=== PATIENT | male | born 2000 | race African-American/Black ===

== ENCOUNTER 2021-06-06 14:31 | Emergency (ER) | payer MEDICAID ==
--- NOTE | 2021-06-06 14:45 | ED Physician Documentation ---
PD HPI CHEST PAIN - Stated complaint Stated Complaint: CHEST PX - History obtained from History obtained from: Patient - Additional information Additional information: 20-year-old gentleman presents via the front door for evaluation of chest pain. He is clearly psychotic saying such thing is my heart is breaking and "where is Woo?" When asking who Woo is, he replies you know "Woo and the being stuck." He says he does not have any health issues. He admits to using marijuana but no other substances. Review of Systems Unable to obtain: Uncooperative PD PAST MEDICAL HISTORY - Allergies Allergies/Adverse Reactions: Allergies Allergy/AdvReac Type Severity Reaction Status Date / Time No Known Drug Allergies Allergy Verified 06/06/21 14:52 PD ED PE NORMAL - Vitals Vital signs reviewed: Yes - General General: No acute distress, Other (Intense stare, delusional and psychotic) - HEENT HEENT: PERRL, EOMI - Neck Neck: Supple, no meningeal sign, No bony TTP, No bruit - Cardiac Cardiac: RRR, No murmur - Respiratory Respiratory: No respiratory distress, Clear bilaterally - Abdomen Abdomen: Normal bowel sounds, Soft, Non tender - Back Back: No CVA TTP, No spinal TTP - Derm Derm: Normal color, Warm and dry - Extremities Extremities: No edema, No calf tenderness / cord - Neuro Eye Opening: Spontaneous Motor: Obeys Commands Results - Vitals Vitals: Vital Signs - 24 hr 06/06/21 06/06/21 06/06/21 18:16 18:30 20:18 Temperature Heart Rate 128 H 73 Respiratory 20 16 Rate Blood Pressure 183/104 H 170/91 H 140/92 H O2 Saturation 100 100 06/06/21 06/07/21 06/07/21 23:38 09:34 16:27 Temperature 36.5 C 36.5 C 37.0 C Heart Rate 72 64 65 Respiratory 16 16 19 Rate Blood Pressure 130/80 117/74 135/80 H O2 Saturation 100 100 100 Oxygen O2 Source Room air - EKG (time done) 1651 Rate: Rate (enter#) (78) Rhythm: NSR Burden: Normal Intervals: Normal MT QRS: Normal Ischemia: Normal ST segments - Labs Labs: Laboratory Tests 06/06/21 06/06/21 06/06/21 16:45 16:45 16:45 WBC 7.0 RBC 4.59 L Hgb 14.3 Hct 40.6 L MCV 88.5 MCH 31.2 H MCHC 35.2 RDW 12.1 Plt Count 165 MPV 10.9 Neut # (Auto) 4.3 Lymph # (Auto) 2.0 [place] # (Auto) 0.7 Eos # (Auto) 0.0 Baso # (Auto) 0.0 Absolute Nucleated RBC 0.00 Nucleated RBC % 0.0 Sodium 137 Potassium 3.3 L Chloride 99 L Carbon Dioxide 25 Anion Gap 13.0 BUN 17 Creatinine 1.0 Estimated GFR (MDRD) 114 Glucose 106 H Calcium 9.1 Magnesium Total Bilirubin 2.3 H AST 40 ALT 23 Alkaline Phosphatase 61 Total Creatine Kinase Total Protein 8.2 Albumin 5.0 Globulin 3.2 Albumin/Globulin Ratio 1.6 Lipase 34 TSH 2.99 Urine Color Urine Clarity Urine pH Ur Specific [place] Urine Protein Urine Glucose (UA) Urine Ketones Urine Occult Blood Urine Nitrite Urine Bilirubin Urine Urobilinogen Ur Leukocyte Esterase Urine RBC Urine WBC Ur Squamous Epith Cells Urine Bacteria Urine Mucus Ur Microscopic Review Urine Culture Comments Salicylates < 6.0 Urine Opiates Screen Ur Oxycodone Screen Urine Methadone Screen Ur Propoxyphene Screen Acetaminophen < 10 L Ur Barbiturates Screen Ur Tricyclics Screen Ur Phencyclidine Scrn Ur Amphetamine Screen U Methamphetamines Scrn U Benzodiazepines Scrn Urine Cocaine Screen U Cannabinoids Screen Ethyl Alcohol < 5.0 SARS-CoV-2 (PCR) 06/06/21 06/06/21 06/07/21 16:45 18:18 13:12 WBC RBC Hgb Hct MCV MCH MCHC RDW Plt Count MPV Neut # (Auto) Lymph # (Auto) [place] # (Auto) Eos # (Auto) Baso # (Auto) Absolute Nucleated RBC Nucleated RBC % Sodium Potassium Chloride Carbon Dioxide Anion Gap BUN Creatinine Estimated GFR (MDRD) Glucose Calcium Magnesium 2.3 Total Bilirubin AST ALT Alkaline Phosphatase Total Creatine Kinase 1222 H* Total Protein Albumin Globulin Albumin/Globulin Ratio Lipase TSH Urine Color BROWN Urine Clarity HAZY Urine pH 6.0 Ur Specific [place] >=1.030 H Urine Protein TRACE Urine Glucose (UA) NEGATIVE Urine Ketones 40 H Urine Occult Blood NEGATIVE Urine Nitrite NEGATIVE Urine Bilirubin NEGATIVE Urine Urobilinogen 0.2 (NORMAL) Ur Leukocyte Esterase NEGATIVE Urine RBC None Seen Urine WBC 0-3 Ur Squamous Epith Cells NONE SEEN Urine Bacteria None Seen Urine Mucus Few Strands Ur Microscopic Review INDICATED Urine Culture Comments NOT INDICATED Salicylates Urine Opiates Screen NEGATIVE Ur Oxycodone Screen NEGATIVE Urine Methadone Screen NEGATIVE Ur Propoxyphene Screen NEGATIVE Acetaminophen Ur Barbiturates Screen NEGATIVE Ur Tricyclics Screen NEGATIVE Ur Phencyclidine Scrn NEGATIVE Ur Amphetamine Screen NEGATIVE U Methamphetamines Scrn NEGATIVE U Benzodiazepines Scrn NEGATIVE Urine Cocaine Screen NEGATIVE U Cannabinoids Screen POSITIVE H Ethyl Alcohol SARS-CoV-2 (PCR) NOT DETECTED 06/07/21 13:12 WBC RBC Hgb Hct MCV MCH MCHC RDW Plt Count MPV Neut # (Auto) Lymph # (Auto) [place] # (Auto) Eos # (Auto) Baso # (Auto) Absolute Nucleated RBC Nucleated RBC % Sodium 138 Potassium 3.6 Chloride 99 L Carbon Dioxide 29 Anion Gap 10.0 BUN 14 Creatinine 1.2 Estimated GFR (MDRD) 93 Glucose 87 Calcium 9.0 Magnesium Total Bilirubin AST ALT Alkaline Phosphatase Total Creatine Kinase Total Protein Albumin Globulin Albumin/Globulin Ratio Lipase TSH Urine Color Urine Clarity Urine pH Ur Specific [place] Urine Protein Urine Glucose (UA) Urine Ketones Urine Occult Blood Urine Nitrite Urine Bilirubin Urine Urobilinogen Ur Leukocyte Esterase Urine RBC Urine WBC Ur Squamous Epith Cells Urine Bacteria Urine Mucus Ur Microscopic Review Urine Culture Comments Salicylates Urine Opiates Screen Ur Oxycodone Screen Urine Methadone Screen Ur Propoxyphene Screen Acetaminophen Ur Barbiturates Screen Ur Tricyclics Screen Ur Phencyclidine Scrn Ur Amphetamine Screen U Methamphetamines Scrn U Benzodiazepines Scrn Urine Cocaine Screen U Cannabinoids Screen Ethyl Alcohol SARS-CoV-2 (PCR) PD MEDICAL DECISION MAKING - ED course ED course: This is a young man who presents by the front door with chest complaints but is clearly psychotic. He is resistant to care and nursing could not even undress him. After several hours of trying to verbally de-escalate and work with him, it became clear that we were not making any headway. We asked the Clara Henley to come in. He did know the patient and reportedly the patient is new to the area and has been staying at [facility] but was kicked out. He went to [facility] today but it is unclear what happened there. We do not know any of his history otherwise. Because of the inability to do anything and his not cooperating with care despite several hours of trying to get things done it became clear that he is seriously mentally ill and gravely disabled and we would need to sedate him to start any work-up and have a DCR evaluation. Subsequently though the patient did acquiesce to a work-up and did not end up getting any sedation/restraint. That said he still was not cooperating with work-up, and multiple police officers were at the bedside for de-escalation. Order for chemical restraint was repeated at 5:56 PM. Departure - Departure Disposition: [facility] Psych Hosp/Unit DC/Xfer Clinical Impression: Psychosis Qualifiers: Psychosis type: unspecified psychosis type Qualified Code(s): F29 - Unspecified psychosis not due to a substance or known physiological condition Condition: Stable
[2021-06-06] MEDS ORDERED: KETAMINE 500 MG/10 ML VIAL IM STA ×2 (16:32→17:56)
[2021-06-06] MEDS ORDERED: OLANZapine 10 MG VIAL IM STA ×2 (16:32→17:56)
--- NOTE | 2021-06-06 16:51 | ED Physician Documentation ---
Face to Face for Restraints - Immediate Situation Face to Face Evaluation Date: 06/06/21 Face to Face Evaluation Time: 16:50 Restraint Situation: Chemical Patient's Reactions to the Intervention: Physically safe - Behavioral Condition Attitude: Indifferent Behavior: Uncooperative, Agitated Orientation: Not oriented to person, place, time, and situation Mood: Labile - Evaluation Review of Systems: Patient not cooperative Pertinent History/Illicit Drugs/Medications/Results: Patient is seriously mentally ill and not cooperating with care, despite several hours of attempts to do less restrictive means to expedite his care for DCR evaluation we did need to sedate him for patient and staff safety and blood work etc. - Plan Need to Continue or Terminate Violent or Chemical Restraint: Zyprexa and ketamine IM, the ketamine for short acting and the Zyprexa for long- acting. Then will dispatch DCR.
[2021-06-06 16:56] LABS: BASOPHILS % (AUTO) 0.3 %; EOSINOPHILS % (AUTO) 0.3 %; HCT - HEMATOCRIT 40.6 % (42.0-52.0); HGB - HEMOGLOBIN 14.3 g/dL (14.0-18.0); LYMPHOCYTES % (AUTO) 28.4 %; MEAN CORPUSCULAR HEMOGLOBIN 31.2 pg (27.0-31.0); MEAN CORPUSCULAR HGB CONC 35.2 g/dL (32.0-36.0); MEAN CORPUSCULAR VOLUME 88.5 fL (80.0-94.0); MEAN PLATELET VOLUME 10.9 fL (7.4-11.4); MONOCYTES # (AUTO) 0.7 10^3/uL (0.0-1.0); MONOCYTES % (AUTO) 9.2 %; NEUTROPHILS # (AUTO) 4.3 10^3/uL (1.5-6.6); NEUTROPHILS % (AUTO) 61.7 %; PLT - PLATELET COUNT 165 10^3/uL (130-450); RED BLOOD COUNT 4.59 10^6/uL (4.70-6.10); RED CELL DISTRIBUTION WIDTH 12.1 % (12.0-15.0)
[2021-06-06 17:07] LABS: ACETAMINOPHEN < 10 ug/mL (10-30); ALBUMIN/GLOBULIN RATIO 1.6 (1.0-2.2); ALKALINE PHOSPHATASE 61 IU/L (42-121); ALT ALANINE AMINOTRANSFERASE 23 IU/L (10-60); AST ASPARTATE AMINOTRANSFERASE 40 IU/L (10-42); BILIRUBIN,TOTAL 2.3 mg/dL (0.2-1.0); BUN - BLOOD UREA NITROGEN 17 mg/dL (6-20); CALCIUM 9.1 mg/dL (8.5-10.3); CARBON DIOXIDE - CO2 25 mmol/L (21-32); CHLORIDE 99 mmol/L (101-111); ETOH - ETHANOL < 5.0 mg/dL; GFR - MDRD 114 (>89); GLUCOSE 106 mg/dL (70-100); LIPASE 34 U/L (22-51); POTASSIUM 3.3 mmol/L (3.5-5.0); SALICYLATE < 6.0 mg/dL; SODIUM 137 mmol/L (135-145); TOTAL PROTEIN 8.2 g/dL (6.7-8.2)
--- NOTE | 2021-06-06 17:58 | ED Physician Documentation ---
Face to Face for Restraints - Immediate Situation Face to Face Evaluation Date: 06/06/21 Face to Face Evaluation Time: 17:57 Restraint Situation: Chemical Patient's Reactions to the Intervention: Physically safe - Behavioral Condition Attitude: Guarded, Indifferent Behavior: Uncooperative, Agitated Orientation: Not oriented to person, place, time, and situation Mood: Labile - Evaluation Review of Systems: Patient not cooperative Pertinent History/Illicit Drugs/Medications/Results: Patient is seriously mentally ill and not cooperating with care, despite several hours of attempts to do less restrictive means to expedite his care for DCR evaluation we did need to sedate him for patient and staff safety and blood work etc. - Plan Need to Continue or Terminate Violent or Chemical Restraint: Necessary chemical restraint and DCR evaluation
[2021-06-06 18:23] LABS: MUDS CUTOFF CONCENTRATIONS CUTOFF CONC BELOW:
[2021-06-06 18:25] LABS: GLUCOSE, URINE (UA) NEGATIVE (NEGATIVE); KETONES,URINE (UA) 40 mg/dL (NEGATIVE); LEUKOCYTE ESTERASE, URINE NEGATIVE (NEGATIVE); NITRITE,URINE NEGATIVE (NEGATIVE); OCCULT BLOOD,URINE NEGATIVE (NEGATIVE); PROTEIN,URINE TRACE mg/dL (NEGATIVE); UROBILINOGEN,URINE 0.2 (NORMAL) E.U./dL (NORMAL)
[2021-06-06 18:36] LABS: BILIRUBIN,URINE NEGATIVE (NEGATIVE); CLARITY,URINE HAZY (CLEAR); ICTOTEST,URINE NEGATIVE
[2021-06-06 18:39] LABS: COCAINE SCREEN URINE NEGATIVE (NEGATIVE); METHAMPHETAMINES SCREEN, URINE NEGATIVE (NEGATIVE); THC CANNABINOID SCREEN, URINE POSITIVE (NEGATIVE)
[2021-06-06 18:40] LABS: AMPHETAMINE SCREEN,URINE NEGATIVE (NEGATIVE); BARBITURATE SCREEN,UR NEGATIVE (NEGATIVE); BENZODIAZEPINES SCREEN, URINE NEGATIVE (NEGATIVE); METHADONE SCREEN, URINE NEGATIVE (NEGATIVE); OPIATE SCREEN, URINE NEGATIVE (NEGATIVE); OXYCODONE SCREEN, URINE NEGATIVE (NEGATIVE); PROPOXYPHENE SCREEN, URINE NEGATIVE (NEGATIVE); TRICYCLIC ANTIDEPRESSANT,URINE NEGATIVE (NEGATIVE)
[2021-06-06 18:42] LABS: BACTERIA,URINE None Seen /HPF (None Seen); MUCUS,URINE Few Strands; RBC,URINE None Seen /HPF (0-5); SQUAMOUS EPITHELIAL CELL,UR NONE SEEN (<= Few); WBC,URINE 0-3 /HPF (0-3)
--- NOTE | 2021-06-06 21:55 | ED Physician Documentation ---
ED Addendum - Addendum Addendum: 06/07/21 06:38 Patient received a signout from off going physician, please see their d ocumentation for further detail. Patient currently being evaluated for erratic and psychotic behavior. Labs and imaging reviewed. Patient was monitored carefully throughout the entirety of my shift. It was noted to be resting comfortably and in no acute distress. Department was contacted by the designated crisis responder, at this time there are no available beds. I will be signing this patient out to the oncoming physician, please see their documentation for further detail.
[2021-06-07] MEDS ORDERED: LORazepam 1 MG TABLET PO STA ×2 (10:38→18:15)
[2021-06-07] MEDS ORDERED: haloperidoL 1 MG TABLET PO STA (10:39)
[2021-06-07 13:33] LABS: MAGNESIUM 2.3 mg/dL (1.7-2.8)
[2021-06-07 13:48] LABS: CREATININE 1.2 mg/dL (0.6-1.2); POTASSIUM 3.6 mmol/L (3.5-5.0)
--- NOTE | 2021-06-07 18:18 | ED Physician Documentation ---
ED Addendum - Addendum Addendum: 06/07/21 18:16 The patient was signed out to me at change of shift, pending social work evaluation after DCR walked away overnight. The patient was reevaluated by social work and then again by the DCR. He was ultimately accepted at [facility] in transfer. He had become a little bit agitated during the day, but had taken Ativan and Haldol orally without any resistance, and this did calm him down. The patient was given 1 more dose of Ativan for the ride over to [facility]. Final impression: 1. Psychosis Disposition: Transfer to inpatient psychiatric facility in serious, but stable condition. 06/07/21 18:18
[2021-06-07 18:25] VITALS: BP 128/69
== END 2021-06-07 18:55 ==
LOC: ED 14:31
DX: F29 Unspecified psychosis not due to a substance or known physiological condition (principal); Z20.822 Contact with and (suspected) exposure to COVID-19
CPT/HCPCS: 36415; 80048; 80053; 80306; 80307; 80320; 80329; 81001; 82550; 83690; 83735; 84443; 85025; 87635; 93005; 96372; 99281; 99285; A9270; J8499; 81003; 87086